=== PATIENT | female | born 1965 | race Caucasian/White ===

== ENCOUNTER 2017-10-19 06:30 | Emergency (ER) | payer OTHER ==
[~2017-10-19] VITALS: Ht 172.7 cm; Wt 86.2 kg
[2017-10-19] MEDS ORDERED: ZOLP10TA2 PO (06:54)
--- NOTE | 2017-10-19 07:10 | NUR ---
Pt walked to bathroom w/ steady gait. Urine collected and sent to lab.
[2017-10-19 07:30] LABS: BASOPHILS % (AUTO) 0.9 % (0.0-2.0); EOSINOPHILS % (AUTO) 0.5 % (0.0-7.0); HEMATOCRIT 37.5 % (31.2-41.9); HEMOGLOBIN 12.6 g/dL (10.9-14.3); LYMPHOCYTES # (AUTO) 1.9 K/uL (20.0-40.0); LYMPHOCYTES % (AUTO) 38.3 % (20.5-51.5); MEAN CORPUSCULAR HEMOGLOBIN 30.8 uug (24.7-32.8); MEAN CORPUSCULAR HGB CONC 34 g/dL (32.3-35.6); MEAN CORPUSCULAR VOLUME 91.5 fL (75.5-95.3); MONOCYTES # (AUTO) 0.3 K/uL (2.0-10.0); MONOCYTES % (AUTO) 5.6 % (0.0-11.0); NEUTROPHILS # (AUTO) 2.7 K/uL (1.8-8.9); NEUTROPHILS % (AUTO) 54.7 % (38.5-71.5); PLATELET COUNT (AUTO) 299 K/uL (179-408)
[2017-10-19 07:32] LABS: *BILIRUBIN,URIN NEGATIVE (NEGATIVE); *BLOOD, URINE 2+ (NEGATIVE); *CLARITY,URINE SLIGHTLY CLOUDY (CLEAR); *COLOR,URINE YELLOW (YELLOW); *KETONES,URINE NEGATIVE (NEGATIVE); *PROTEIN,URINE TRACE (NEGATIVE); *UROBILINOGEN,URINE 0.2 E.U./dl (NORMAL); LEUKOCYTE ESTERASE ,URINE NEGATIVE (NEGATIVE); NITRITE, URINE NEGATIVE (NEGATIVE); PH,URINE 6.5 (5.0-8.0); UGLUCOSE NEGATIVE (NEGATIVE)
[2017-10-19 07:42] LABS: ETHANOL 195 MG/DL (0-0)
[2017-10-19 07:44] LABS: *URINE HCG, QUAL NEGATIVE (NEGATIVE)
[2017-10-19 07:46] LABS: ALANINE AMINOTRANSFERASE 28 U/L (14-59); ALKALINE PHOSPHATASE 58 U/L (50-136); ASPARTATE AMINOTRANSFERASE 37 U/L (15-37); BILIRUBIN,DIRECT 0.1 mg/dL (0.0-0.2); BILIRUBIN,TOTAL 0.4 mg/dL (0.2-1.0); CARBON DIOXIDE 24 mmol/L (21-32); CHLORIDE 105 mmol/L (98-107); CREATININE 0.8 mg/dL (0.6-1.3); GLUCOSE 97 mg/dL (74-106); POTASSIUM 3.5 mmol/L (3.5-5.1); TOTAL PROTEIN, SERUM 6.8 g/dL (6.4-8.2); UREA NITROGEN, BLOOD 13 mg/dL (7-18)
--- NOTE | 2017-10-19 07:52 | NUR ---
Patient is resting comfortably in bed with eyes closed, NAD noted.
[2017-10-19 07:57] LABS: *AMPHETAMINE, URINE NEGATIVE (NEGATIVE); *BARBITURATE, URINE NEGATIVE (NEGATIVE); *CANNABINOID, URINE NEGATIVE (NEGATIVE); *COCCAINE, URINE NEGATIVE (NEGATIVE); *OPIATE, URINE NEGATIVE (NEGATIVE); *PHENCYCLIDINE SCREEN,URINE NEGATIVE (NEGATIVE)
[2017-10-19 08:00] LABS: BACTERIA,URINE FEW /HPF (NONE SEEN); RBC,URINE 0-3 /HPF (0-3); SQUAMOUS EPITHELIAL CELL,UR MODERATE /HPF (NONE SEEN); WBC,URINE 0-3 /HPF (0-3)
--- NOTE | 2017-10-19 08:15 | NUR ---
Pt is medically cleared by Dr Patterson. Left message for Jhonny Pringle(PET) for psych eval per md request.
[2017-10-19] MEDS ORDERED: ONDANSETRON ODT 4 MG TAB.RAPDIS SL ONE (08:45)
[2017-10-19] MEDS ORDERED: ONDANSETRON ODT 4 MG TAB.RAPDIS ONE (08:58)
--- NOTE | 2017-10-19 09:24 | NUR ---
Jhonny Pringle ([facility] Infection Control Preventionist) at the bedside for Psych eval.
--- NOTE | 2017-10-19 10:16 | NUR ---
Per PET assistant auto center manager pt maybe admitted to [facility], awaiting call back. pt c/o headache, Dr simpson aware.
[2017-10-19] MEDS ORDERED: ACETAMINOPHEN 325 MG TABLET PO ONE (10:30)
[2017-10-19] MEDS ORDERED: ACETAMINOPHEN ES 500 MG TABLET ONE (10:46)
--- NOTE | 2017-10-19 11:45 | NUR ---
Spoke to Jhonny Pringle as well as Yarely(intake rep at [facility]), Pt will be discharge home and follow up at voluntary admit after eval to [facility]. Information provided to Dr Patterson and pt. Pt agreed and states she will follow up w/ facility.
--- NOTE | 2017-10-19 12:18 | NUR ---
Patient discharged to home in stable conditon. Written and verbal after care instructions given. Patient verbalizes understanding of instructions. Taxi voucher provided to pt.
[2017-10-19 12:19] VITALS: BP 144/82
== END 2017-10-19 12:19 | disposition home or self-care (01) ==
LOC: ER 06:32
DX: F32.9 Major depressive disorder, single episode, unspecified (principal); Z98.84 Bariatric surgery status
CPT/HCPCS: 36415; 71010; 80048; 80076; 80307; 81001; 84703; 85025; 93005; 99285; A4663; G0480 ×2; G0481; Q0162